=== PATIENT | female | born 1995 | race Caucasian/White ===

== ENCOUNTER 2017-10-29 15:17 | Emergency (ER) | payer OTHER ==
[~2017-10-29] VITALS: Ht 175.3 cm; Wt 66.0 kg
[2017-10-29 15:20] VITALS: BP 127/78; PULSE 132; RESP 16; TEMP 98.6; O2SAT 100
[2017-10-29] MEDS ORDERED: ADDE20XR PO (17:48)
[2017-10-29 17:51] VITALS: BP 113/64; PULSE 90; RESP 15; TEMP 98.6; O2SAT 100
[2017-10-29 18:20] LABS: BILIRUBIN, URINE NEG (NEG); BLOOD, URINE NEG (NEG); GLUCOSE,URINE NEG (NEG); KETONE, URINE NEG (NEG); MUCUS URINE FEW /lpf (OCC); NITRITE,URINE NEG (NEG); URINE COLOR LIGHT-YELLOW (YELLW/STRAW); URINE LEUKOCYTE ESTERASE NEG (NEG)
[2017-10-29 18:36] LABS: AUTOMATED NEUTROPHIL # 3.5 TH/MM3 (1.8-7.7); BASOPHIL % 0.7 % (0.0-2.0); EOSINOPHIL % 0.5 % (0.0-4.0); HEMATOCRIT 41.4 % (35.0-46.0); HEMOGLOBIN 14.5 GM/DL (11.6-15.3); LYMPH % 33.1 % (9.0-44.0); MEAN CELL VOLUME 89.5 FL (80.0-100.0); MEAN CORPUSCULAR HEMOGLOBIN 31.3 PG (27.0-34.0); MEAN CORPUSCULAR HGB CONC 34.9 % (32.0-36.0); MEAN PLATELET VOLUME 8.2 FL (7.0-11.0); MONO % 8.4 % (0.0-8.0); MONOCYTE # 0.5 TH/MM3 (0-0.9); NEUT % 57.3 % (16.0-70.0); PLATELET COUNT 253 TH/MM3 (150-450); RED BLOOD COUNT 4.63 MIL/MM3 (4.00-5.30); RED CELL DISTRIBUTION WIDTH 13.2 % (11.6-17.2); WHITE BLOOD COUNT 6.1 TH/MM3 (4.0-11.0)
[2017-10-29 18:51] LABS: BICARBONATE 21.5 MEQ/L (21.0-32.0); CALCIUM 8.9 MG/DL (8.5-10.1); CREATININE 0.74 MG/DL (0.50-1.00)
--- NOTE | 2017-10-29 18:55 | PD ---
HPI Chief Complaint: Skin Problem Time Seen by Provider: 18:33 Travel History International Travel<30 days: No Contact w/Intl Traveler<30days: No Traveled to known affect area: No History of Present Illness HPI 22-year-old woman who presents to the emergency department complaining of skin changes and or 70s. She states she gets intermittent purplish discoloration to her lower extremities ongoing times months. She states it is occasionally painful special for the past week or so. Sometimes when she sitting, sometimes with cold but not necessarily so. She also complained of a little bit of lower abdominal discomfort. She has been feeling otherwise well and healthy. She was in the ER recently for some back pain. No history of rheumatologic or vascular disease. No other complaints. History Past Medical History Medical History: Denies Significant Hx Social History Alcohol Use: No Tobacco Use: Yes (electronic cigarettes) Allergies-Medications (Allergen,Severity, Reaction): Coded Allergies: amoxicillin (Verified Allergy, Severe, Hives, 10/29/17) Reported Meds & Prescriptions Reported Meds & Active Scripts Active Reported Adderall Xr 24 HR (Amphetamine/Dextroamphetamine) 20 Mg Cap 20 Mg PO DAILY Once daily in the morning. Review of Systems Except as stated in HPI: all other systems reviewed are Neg Physical Exam Narrative GENERAL: Well-appearing 22-year-old young woman, no acute distress. SKIN: Focused skin assessment warm/dry. Some slight mottling in the lower extremities. HEAD: Atraumatic. Normocephalic. EYES: Pupils equal and round. No scleral icterus. No injection or drainage. ENT: No nasal bleeding or discharge. Mucous membranes pink and moist. NECK: Trachea midline. No JVD. CARDIOVASCULAR: Regular rate and rhythm. No murmurs. No gallops. Pulses are strong and equal peripherally. RESPIRATORY: No accessory muscle use. Clear to auscultation. Breath sounds equal bilaterally. GASTROINTESTINAL: Abdomen soft, non-tender, nondistended. Hepatic and splenic margins not palpable. MUSCULOSKELETAL: No obvious deformities. No clubbing. No cyanosis. No edema. NEUROLOGICAL: Awake and alert. No obvious cranial nerve deficits. Motor grossly within normal limits. Normal speech. PSYCHIATRIC: Appropriate mood and affect; insight and judgment normal. Data Data Last Documented VS Vital Signs Date Time Temp Pulse Resp B/P (MAP) Pulse Ox O2 Delivery O2 Flow Rate FiO2 10/29/17 17:51 98.6 90 15 113/64 (80) 100 Room Air Orders Orders Complete Blood Count With Diff (10/29/17 15:59) Basic Metabolic Panel (Bmp) (10/29/17 15:59) Urinalysis - C+S If Indicated (10/29/17 17:15) Ed Urine Pregnancytest Poc (10/29/17 17:15) Labs Laboratory Tests Test 10/29/17 17:03 10/29/17 17:53 Urine Color LIGHT-YELLOW Urine Turbidity CLEAR Urine pH 8.0 Urine Specific House 1.004 Urine Protein NEG mg/dL Urine Glucose (UA) NEG mg/dL Urine Ketones NEG mg/dL Urine Occult Blood NEG Urine Nitrite NEG Urine Bilirubin NEG Urine Urobilinogen LESS THAN 2.0 MG/DL Urine Leukocyte Esterase NEG Urine RBC 1 /hpf Urine WBC LESS THAN 1 /hpf Urine Mucus FEW /lpf Microscopic Urinalysis Comment CULT NOT INDICATED White Blood Count 6.1 TH/MM3 Red Blood Count 4.63 MIL/MM3 Hemoglobin 14.5 GM/DL Hematocrit 41.4 % Mean Corpuscular Volume 89.5 FL Mean Corpuscular Hemoglobin 31.3 PG Mean Corpuscular Hemoglobin Concent 34.9 % Red Cell Distribution Width 13.2 % Platelet Count 253 TH/MM3 Mean Platelet Volume 8.2 FL Neutrophils (%) (Auto) 57.3 % Lymphocytes (%) (Auto) 33.1 % Monocytes (%) (Auto) 8.4 % Eosinophils (%) (Auto) 0.5 % Basophils (%) (Auto) 0.7 % Neutrophils # (Auto) 3.5 TH/MM3 Lymphocytes # (Auto) 2.0 TH/MM3 Monocytes # (Auto) 0.5 TH/MM3 Eosinophils # (Auto) 0.0 TH/MM3 Basophils # (Auto) 0.0 TH/MM3 CBC Comment DIFF FINAL Differential Comment MDM Medical Decision Making Medical Screen Exam Complete: Yes Emergency Medical Condition: Yes Interpretation(s) UA unremarkable. CBC is unremarkable. BMP is unremarkable. Differential Diagnosis Vascular disease, vasculitis, Raynaud's phenomenon, dissection or aneurysm, DVT , other Narrative Course Medical decision making 22-year-old woman, presents emergency department with intermittent purplish discoloration is origin is ongoing times months. Looks well. Suspect pronounced phenomenon. I do not see any evidence of compromise perfusion, dissection, or other more severe vascular disease. She looks overall well. She has a variety of other complaints including some lower abdominal discomfort , some nodules on her hands, and may have some kind of unusual underlying vasculitis or rheumatologic disease. That being said, labs are unremarkable. Urine is normal. I recommend outpatient follow-up. She is discussed with the patient. Diagnosis Primary Impression: Raynaud phenomenon Additional Instructions: Follow-up with a primary physician locally for further evaluation. If you have an episode of discoloration or pain that does not resolve, return to the emergency department. Med/Other Pt SpecificInfo: No Change to Meds Disposition: 01 DISCHARGE HOME Condition: Stable Karson Tony MD Oct 29, 2017 18:55
== END 2017-10-29 19:41 | disposition home or self-care (01) ==
LOC: NEPE 15:17
DX: I73.00 Raynaud's syndrome without gangrene (principal); F17.290 Nicotine dependence, other tobacco product, uncomplicated; Z79.899 Other long term (current) drug therapy; Z88.0 Allergy status to penicillin
CPT/HCPCS: 80048; 81001; 84703; 85025; 99283